=== PATIENT | male | born 1935 | race Caucasian/White ===

== ENCOUNTER → 2017-08-30 15:51 | Outpatient (CLI) | payer MEDICARE, SELFPAY ==
--- NOTE | 2017-08-30 | DI.RAD.S_ITS ---
PROCEDURE: XR HIP W PEL IF DONE RT 2V INDICATIONS: RIGHT HIP PAIN TECHNIQUE: AP pelvis with lateral view(s) of the right hip(s). COMPARISON: [facility], CR, HIPBILAT 3TO4V W PEL IF PERFD, 04/30/2015, 14:14. FINDINGS: Bones: No fractures or dislocations. Degenerative osteophytic change at the right hip has mildly progressed, and the hip joint osteoarthritis on the left is mild to moderate and on the right now is moderate. No trauma found. Pelvic ring appears intact. No suspicious bony lesions. Soft tissues: The visualized bowel gas pattern is normal. No suspicious soft tissue calcifications. IMPRESSION: Worsening degenerative joint osteoarthritis, now moderate on the right and no trauma or subluxation is present. This represents a mild degree of interval worsening from 2016. Dictated by: Moses Snyder M.D. on 08/30/2017 at 16:27 Approved by: Moses Snyder M.D. on 08/30/2017 at 16:28
== END ==
PROVIDERS: Visit Provider Physician Assistant
DX: M16.11 Unilateral primary osteoarthritis, right hip (principal); M25.551 Pain in right hip
CPT/HCPCS: 73502

== ENCOUNTER → 2017-08-31 19:11 | Outpatient (CLI) | payer MEDICARE, SELFPAY ==
--- NOTE | 2017-08-31 19:16 | DI.RAD.S_ITS ---
PROCEDURE: XR HIP RT 1V INDICATIONS: PAIN IN RIGHT HIP TECHNIQUE: Single frontal view of the hip was acquired. COMPARISON: None. FINDINGS: Bones: No fractures or dislocations. There is ill-defined increased density in the proximal right femoral metaphysis partially visualized. The visualized pelvic ring appears intact. Right hip degenerative change. Soft tissues: No suspicious soft tissue calcifications or masses. IMPRESSION: 1. Partially visualized increased density in the proximal right femoral metaphysis near the clinically reported soft tissue lump. Consider dedicated right femoral radiographs. 2. No right hip fractures. If there is concern for a radiographically occult fracture than a noncontrast MRI would be recommended for further evaluation. Dictated by: Castro Liu M.D. on 09/01/2017 at 12:10 Approved by: Castro Liu M.D. on 09/01/2017 at 12:12
== END ==
PROVIDERS: Visit Provider Physician Assistant
DX: M25.551 Pain in right hip (principal); Z53.9 Procedure and treatment not carried out, unspecified reason
CPT/HCPCS: 73501

== ENCOUNTER → 2017-09-01 14:31 | Outpatient (CLI) | payer MEDICARE, SELFPAY | PROVIDERS: Visit Provider Physician Assistant | DX: M25.551 Pain in right hip (principal); Z53.9 Procedure and treatment not carried out, unspecified reason | CPT/HCPCS: 73502 ==

== ENCOUNTER → 2017-10-31 12:04 | Outpatient (CLI) | payer MEDICARE, SELFPAY | PROVIDERS: PCP Physician Assistant; Visit Provider Internal Medicine | DX: L89.213 Pressure ulcer of right hip, stage 3 (principal); M62.84 Sarcopenia; L08.9 Local infection of the skin and subcutaneous tissue, unspecified | CPT/HCPCS: 11042; 87070; 87075; 87147; 87205 ==

== ENCOUNTER → 2017-11-07 09:49 | Outpatient (CLI) | payer MEDICARE, SELFPAY | PROVIDERS: PCP Physician Assistant; Visit Provider Internal Medicine | DX: L89.213 Pressure ulcer of right hip, stage 3 (principal) | CPT/HCPCS: 11042 ==

== ENCOUNTER → 2017-11-14 09:43 | Outpatient (CLI) | payer MEDICARE, SELFPAY ==
--- NOTE | 2017-11-14 | OV.WND_ITS ---
Progress Note Details Patient Name: Ar Hernandez Patient Number: [id number] PatientPatientDate: 11/14/2017 Clinician: Tesha Collazo Clinician Cosigner: Ana Maria Paul Physician / Transformer Maker: Shawn Perez SUBJECTIVE Chief Complaint This information was obtained from the patient Pressure ulcer on the right hip. Allergies amoxicillin (Severity: Moderate, Reaction: hives) HPI This information was obtained from the patient 11/14/17. Seen by Dr. Perez. The patient does not report pain or significant drainage associated with the right hip pressure ulcer since his last visit. 11/07/17. Seen by Dr. Perez. The patient does not report pain or significant drainage associated with the right hip pressure ulcer since his last visit and he's offloading the site as much as possible noting it's difficult while sleeping at night. 10/31/17. Seen by Dr. Perez. The patient presents with a right lateral hip pressure ulcer he feels has been present for many months and may have started after a fall onto the hip which lead to a large bruise. He does not report pain at the site nor drainage and he' s been applying topical mupiricin. He admits to being quite sedentary and uses a power scooter to help mobilize due to chronic lower ack pain and states he has an offloading cushion for the scooter. Past Medical History This information was obtained from the patient Patient has a medical history of: Hypertension Chronic low back pain Bilateral hip pain Complaints and Symptoms This information was obtained from the patient Patient complains of: General Notes: I have reviewed and concur with the Review of Systems and Past Family Social History documents completed by the clinician, I have reviewed and concur with the Wound Assessment document completed by the clinician Hematologic/Lymphatic: Bleeding Tendency Integumentary (Hair/Skin/Nails): Open Sore Musculoskeletal: Muscle Wasting, Muscle Weakness Prior Wound History: Erythema Patient denies complaints or symptoms related to: Cardiovascular (Central): Irregular heart beat Constitutional Symptoms (General Health): Chills, Fever Hematologic/Lymphatic: Bleeding / Clotting Disorders Neurological: Loss of Protective Sensation Prior Wound History: Drainage Psychiatric: Memory Loss Respiratory: Shortness of Breath Additional Information Does patient have a history of Cancer? Yes? Complete all questions.: No OBJECTIVE Constitutional BP elevated; Afebrile; Alert and in no distress. Well developed. Alert. Clean appearing.. Height/Length: 68 in (172.72 cm), Weight: 185.8 lbs (84.45 kgs), BMI: 28.2, Temperature: 98.5 ?F (36.94 ?C), Pulse: 61 bpm, Respiratory Rate: 16 breaths/min, Blood Pressure: 180/77 mmHg, Pulse Oximetry: 96 %. Respiratory: No respiratory distress. Even respirations and without use of accessory muscles.. Integumentary (Hair, Skin) Mild periwound erythema without warmth; adherent yellow drainage overlying. Refer to appropriate clinician wound documentation for this visit; right hip ulcer extends to subcut with base partially covered with pink granulation, remainder fibrin and slough. 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 Subsequent wound encounter measurements are 1.3cm length x 0.5cm width x 0.1cm depth, with an area of 0.65 sq cm and a volume of 0.065 cubic cm. No tunneling has been noted. No sinus tract has been noted. No undermining has been noted. There is a small amount of serosanguineous drainage noted which has no odor. The patient reports a wound pain of level 0/10. The wound margin is attached. Wound bed has Yes epithelialization, No eschar, Yes slough, Yes bright red, firm granulation. The periwound skin moisture is normal. The periwound skin color is normal. The periwound skin exhibited: Induration. The periwound skin did not exhibit: Brawny Induration, Edema, Excoriation, Callus, Crepitus, Fluctuance, Friable, Rash. The temperature of the periwound skin is WNL. Periwound skin does not exhibit signs or symptoms of infection. Local Pulse is N/A. Neurological: Cranial nerves grossly intact with symmetric function normal by informal observation.. ASSESSMENT Active Problems ICD-10 (Encounter Diagnosis) L89.213 - Pressure ulcer of right hip, stage 3 (Encounter Diagnosis) L08.9 - Local infection of the skin and subcutaneous tissue, unspecified PROCEDURES Wound #1 Wound #1 (Pressure Ulcer) is located on the right, lateral hip. A skin/ subcutaneous tissue level surgical debridement with a total area debrided of 0.52 sq cm was performed by Shawn Perez MD. Subcutaneous was removed along with devitalized tissue: exudate and slough. The following instrument(s) were used: curette. Pain control was achieved using 4% Lido. A time out was conducted prior to the start of the procedure. A moderate amount of bleeding was controlled with pressure. The procedure was tolerated well with a pain level of 0 throughout and a pain level of 0 following the procedure. Post Debridement Measurements: 1.3cm length x 0.4cm width x 0.2cm depth; with an area of 0.52 sq cm and a volume of 0.104 cubic cm; Additional Information Muscle fascia or bone removed and sent to pathology?: No PLAN Wound Orders: Wound #1 Right, Lateral Hip Anesthetic Topical Xylocaine to wound bed. - Lidocaine used in clinic only. Cleanser Cleanse Wound: - Normal saline and gauze, may use distilled water at home. May Shower. - Please cover with protective materials to avoid water getting in the wound. Dressings Pack wound: - THIN layer of hydrogel to wound base. Cover and secure with: - Covrsite island dressing. Change Dressing: - Every other day. Additional Orders: Off-Loading Keep weight off: - Use pillow for off loading. Turn every 2 hours. Avoid position directing pressure to Wound site. Limit side lying to 30 degree tilt. Limit HOB elevation to 30 degrees in bed. Follow-Up Appointments Return Appointment: - - One week. Other information: If you develop fever, chills, increased pain, drainage, redness or swelling please call our office. If after hours, respond to the ER. Should you experience any significant changes in your wound(s) or have any questions regarding your home care instructions please contact the wound center @ [phone]. If after hours, contact your primary care physician or go to the hospital emergency room. Scribing Attestation I attest, as the nurse, that I scribed these orders for the physician. Laboratory: Culture Wound - Will call with culture results if any antibiotics are required. I've reviewed the clinician's documentation and agree with the evaluation and plan as written. In addition, the patient's ulcer demonstrates evidence of non-viable devitalized tissue which will continue to benefit from sharp debridement to help promote granulation and expedite healing. Also, I've cultured the ulcer drainage and will begin treating with topical OTC antibiotic then consider adding and oral antibiotic pending the culture results. Electronic Signature(s) Signed By: Date: Shawn Perez MD 11/14/2017 13:54:04 Entered By: Shawn Perez on 11/14/2017 13:48:03
== END ==
PROVIDERS: PCP Physician Assistant; Visit Provider Internal Medicine
DX: L89.213 Pressure ulcer of right hip, stage 3 (principal)
CPT/HCPCS: 11042; 87070; 87075; 87205

== ENCOUNTER → 2017-11-22 14:18 | Outpatient (CLI) | payer MEDICARE, SELFPAY ==
--- NOTE | 2017-11-22 | OV.WND_ITS ---
Progress Note Details Patient Name: Ar Hernandez Patient Number: [id number] PatientPatientDate: 11/22/2017 Clinician: Jennifer Jim Clinician Cosigner: Ana Maria Paul Physician / Shellfish Processing Laborer: Shawn Perez SUBJECTIVE Chief Complaint This information was obtained from the patient Pressure ulcer on the right hip. Allergies amoxicillin (Severity: Moderate, Reaction: hives) HPI This information was obtained from the patient 11/22/17. Seen by Dr. Perez. The patient does not report pain or significant drainage associated with the right hip pressure ulcer since his last visit. 11/14/17. Seen by Dr. Perez. The patient does not report pain or significant drainage associated with the right hip pressure ulcer since his last visit. 11/07/17. Seen by Dr. Perez. The patient does not report pain or significant drainage associated with the right hip pressure ulcer since his last visit and he's offloading the site as much as possible noting it's difficult while sleeping at night. 10/31/17. Seen by Dr. Perez. The patient presents with a right lateral hip pressure ulcer he feels has been present for many months and may have started after a fall onto the hip which lead to a large bruise. He does not report pain at the site nor drainage and he' s been applying topical mupiricin. He admits to being quite sedentary and uses a power scooter to help mobilize due to chronic lower ack pain and states he has an offloading cushion for the scooter. Past Medical History This information was obtained from the patient Patient has a medical history of: Hypertension Chronic low back pain Bilateral hip pain Complaints and Symptoms This information was obtained from the patient Patient complains of: General Notes: I have reviewed and concur with the Review of Systems and Past Family Social History documents completed by the clinician, I have reviewed and concur with the Wound Assessment document completed by the clinician Hematologic/Lymphatic: Bleeding Tendency Integumentary (Hair/Skin/Nails): Open Sore Musculoskeletal: Muscle Wasting, Muscle Weakness Prior Wound History: Erythema Patient denies complaints or symptoms related to: Cardiovascular (Central): Irregular heart beat Constitutional Symptoms (General Health): Chills, Fever Hematologic/Lymphatic: Bleeding / Clotting Disorders Neurological: Loss of Protective Sensation Prior Wound History: Drainage Psychiatric: Memory Loss Respiratory: Shortness of Breath Additional Information Does patient have a history of Cancer? Yes? Complete all questions.: No OBJECTIVE Constitutional BP elevated; Afebrile; Alert and in no distress. Well developed. Alert. Clean appearing.. Height/Length: 68 in (172.72 cm), Weight: 190.3 lbs (86.5 kgs), BMI: 28.9, Temperature: 98.4 ?F (36.89 ?C), Pulse: 69 bpm, Respiratory Rate: 18 breaths/min, Blood Pressure: 176/74 mmHg, Pulse Oximetry: 95 %. Respiratory: No respiratory distress. Even respirations and without use of accessory muscles.. Integumentary (Hair, Skin) Refer to appropriate clinician wound documentation for this visit.. 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 Subsequent wound encounter measurements are 0.1cm length x 0.1cm width x 0.1cm depth, with an area of 0.01 sq cm and a volume of 0.001 cubic cm. No tunneling has been noted. No sinus tract has been noted. No undermining has been noted. There is a small amount of serosanguineous drainage noted which has no odor. The patient reports a wound pain of level 0/10. The wound margin is attached. Wound bed has Yes epithelialization, No eschar, No slough, No granulation. The periwound skin moisture is normal. The periwound skin color is normal. The periwound skin did not exhibit: Brawny Induration, Edema, Excoriation, Induration, Callus , Crepitus, Fluctuance, Friable, Rash. The temperature of the periwound skin is WNL. Periwound skin does not exhibit signs or symptoms of infection. Local Pulse is N/A. Neurological: Cranial nerves grossly intact with symmetric function normal by informal observation.. ASSESSMENT Active Problems ICD-10 (Encounter Diagnosis) L89.213 - Pressure ulcer of right hip, stage 3 PLAN Wound Orders: Wound #1 Right, Lateral Hip Anesthetic Topical Xylocaine to wound bed. - Lidocaine used in clinic only. Cleanser Cleanse Wound: - Normal saline and gauze, may use distilled water at home. May Shower. - Please cover with protective materials to avoid water getting in the wound. Dressings Pack wound: - THIN layer of hydrogel to wound base. Cover and secure with: - Covrsite island dressing. Change Dressing: - Every other day. Additional Orders: Off-Loading Keep weight off: - Use pillow for off loading. Turn every 2 hours. Avoid position directing pressure to Wound site. Limit side lying to 30 degree tilt. Limit HOB elevation to 30 degrees in bed. Follow-Up Appointments Other information: If you develop fever, chills, increased pain, drainage, redness or swelling please call our office. If after hours, respond to the ER. Should you experience any significant changes in your wound(s) or have any questions regarding your home care instructions please contact the wound center @ [phone]. If after hours, contact your primary care physician or go to the hospital emergency room. Discharge from Outpatient Services. Scribing Attestation I attest, as the nurse, that I scribed these orders for the physician. Electronic Signature(s) Signed By: Date: Shawn Perez MD 11/23/2017 06:50:35 Entered By: Shawn Perez on 11/22/2017 14:43:02
== END ==
PROVIDERS: PCP Physician Assistant; Visit Provider Internal Medicine
DX: L89.213 Pressure ulcer of right hip, stage 3 (principal)
CPT/HCPCS: 99211

== ENCOUNTER → 2019-02-09 15:19 | Outpatient (CLI) | payer MEDICARE, SELFPAY ==
--- NOTE | 2019-02-09 | DI.RAD.S_ITS ---
PROCEDURE: XR FOOT RT MIN 3V INDICATIONS: injury of right foot TECHNIQUE: 3 views of the foot were acquired. COMPARISON: None. FINDINGS: Bones: There is diffuse osteopenia. Osteoarthritic changes throughout right foot and ankle is seen. Subtle linear lucency traversing the second, third and possibly metatarsal bases are seen concerning for subtle nondisplaced fractures. Clinical correlation is recommended. Soft tissues: No tibiotalar joint effusion. Achilles tendon appears normal. IMPRESSION: Moderate to severe osteoarthritic changes throughout right foot. Diffuse osteopenia. Subtle radiolucency involving second and third metatarsal bases and possibly fourth metatarsal base concerning for nondisplaced fractures in these areas. Clinical correlation is recommended. Dictated by: Carlos Enrique Urban M.D. on 02/09/2019 at 17:16 Approved by: Carlos Enrique Urban M.D. on 02/09/2019 at 17:20
--- NOTE | 2019-02-09 | DI.RAD.S_ITS ---
PROCEDURE: XR ANKLE RT MIN 3V INDICATIONS: inuryj of right foot TECHNIQUE: 3 views of the ankle were acquired. COMPARISON: None. FINDINGS: Bones: No fractures or dislocations. Ankle mortise is normally aligned. Osteoarthritic changes throughout ankle joint and hindfoot joints are seen. No suspicious bony lesions. Soft tissues: Marked soft tissue swelling around ankle joint is seen. No tibiotalar joint effusion. Achilles tendon appears normal. IMPRESSION: No gross acute ankle fracture or dislocation. Osteoarthritic changes throughout ankle joint and hindfoot joints. Dictated by: Carlos Enrique Urban M.D. on 02/09/2019 at 17:20 Approved by: Carlos Enrique Urban M.D. on 02/09/2019 at 17:21
== END ==
PROVIDERS: PCP Physician Assistant; Visit Provider Internal Medicine
DX: S99.921A Unspecified injury of right foot, initial encounter (principal); X58.XXXA Exposure to other specified factors, initial encounter; M85.871 Other specified disorders of bone density and structure, right ankle and foot
CPT/HCPCS: 73610; 73630

== ENCOUNTER → 2019-02-26 11:46 | Outpatient (CLI) | payer MEDICARE, SELFPAY ==
--- NOTE | 2019-02-26 | DI.US.S_ITS ---
PROCEDURE: US PERIPH VENOUS LOW EXTREM RT INDICATIONS: EDEMA X 6 YEARS TECHNIQUE: Real-time imaging, as well as color and pulse Doppler interrogation, were performed of the lower extremity deep veins from the inguinal ligament to the popliteal fossa. COMPARISON: None. FINDINGS: The common femoral, femoral and popliteal veins are normally compressible, and free of intraluminal thrombus. Color and pulse Doppler demonstrate normal phasic intraluminal flow. There is normal augmentation response to distal compression maneuver. IMPRESSION: No deep venous thrombosis identified within the right lower extremity. Dictated by: Hood Valero [facility] Interpreted: Moses Snyder MD on 02/26/2019 at 13:47 Approved by: Moses Snyder M.D. on 02/27/2019 at 9:11
== END ==
PROVIDERS: PCP Internal Medicine; Visit Provider Internal Medicine
DX: R60.0 Localized edema (principal); M79.89 Other specified soft tissue disorders
CPT/HCPCS: 93971

== ENCOUNTER → 2023-12-20 10:40 | Outpatient (CLI) | payer MEDICARE, SELFPAY ==
--- NOTE | 2023-12-20 10:45 | DI.RAD.S_ITS ---
PROCEDURE: XR SHOULDER LT MIN 2V INDICATIONS: SHOULDER PAIN TECHNIQUE: < 3 views of the shoulder were acquired. COMPARISON: None. FINDINGS: Bones: There are no osseous abnormalities. Acromioclavicular and glenohumeral joints: Mild acromioclavicular and severe glenohumeral degeneration noted Soft tissues: Calcifications seen in the distal rotator cuff. IMPRESSION: Degeneration. 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 Dictated by: Vik Murray M.D. on 12/21/2023 at 10:18 Approved by: Vik Murray M.D. on 12/21/2023 at 10:19
== END ==
LOC: RAD 10:44
PROVIDERS: PCP Nurse Practitioner Family; Referring Provider Nurse Practitioner Family; Visit Provider Nurse Practitioner Family
DX: M19.012 Primary osteoarthritis, left shoulder (principal); M25.512 Pain in left shoulder; G89.29 Other chronic pain
CPT/HCPCS: 73030

== ENCOUNTER → 2024-01-31 08:37 | Outpatient (CLI) | payer OTHER, SELFPAY ==
--- NOTE | 2024-01-31 08:41 | DI.CT.S_ITS ---
PROCEDURE: CT CHEST WO CON INDICATIONS: SOFT TISSUE MASS TECHNIQUE: Noncontrast 5 mm thick sections acquired from the pulmonary apices to the posterior costophrenic angles. 1 mm lung window, 5 mm thick coronal and sagittal and 7 mm axial MIP reformats were then acquired. For radiation dose reduction, the following was used: automated exposure control, adjustment of mA and/or kV according to patient size. COMPARISON: None. FINDINGS: Image quality: Diagnostic. Lower Neck: No enlarged lymph nodes. Thyroid: No thyroid nodules which require sonographic follow up, per consensus guidelines. Axillae: No enlarged lymph nodes. Chest Wall: In this patient with this given history, scrutiny is given to at the marked area of clinical concern. Posteriorly on the right, there is a soft tissue lesion seen measuring 3.7 x 2.4 cm in greatest axial dimension, with a craniocaudal extent of 4.7 cm. No involvement of the underlying ribs can be seen. Bones: Age-appropriate bony degenerative changes are seen. Accentuated thoracic kyphosis is seen. Lungs and Pleura: No pneumothorax or pleural effusions. No consolidation or suspicious nodules. However, several tiny subpleural nodules can be seen that measure up to 4 mm, which are likely related to subpleural lymph nodes. Heart: Heart size is normal. No pericardial effusion. Moderate to prominent coronary artery calcification can be seen. Thoracic Vessels: The aorta and pulmonary arteries demonstrate normal size. Mediastinum and Glenda: No enlarged lymph nodes. Esophagus: No wall thickening. There is a small hiatal hernia. Upper Abdomen: Visualized upper abdomen solid organs and bowel loops appear normal. IMPRESSION: Superficial soft tissue chest wall mass seen at the marked area of clinical concern, measuring up to 4.7 cm. - If clinically appropriate, please consider ultrasound-guided percutaneous biopsy. Additional findings: Moderate to prominent coronary artery calcification Small hiatal hernia Dictated by: Arturo Dunn M.D. on 01/31/2024 at 15:04 Approved by: Arturo Dunn M.D. on 01/31/2024 at 15:07
== END ==
LOC: CT 08:40
PROVIDERS: PCP Nurse Practitioner Family; Referring Provider Nurse Practitioner Family; Visit Provider Nurse Practitioner Family
DX: R22.2 Localized swelling, mass and lump, trunk (principal); M79.89 Other specified soft tissue disorders; I25.10 Atherosclerotic heart disease of native coronary artery without angina pectoris; K44.9 Diaphragmatic hernia without obstruction or gangrene; M40.294 Other kyphosis, thoracic region; R22.0 Localized swelling, mass and lump, head; L98.9 Disorder of the skin and subcutaneous tissue, unspecified
CPT/HCPCS: 71250

== ENCOUNTER → 2024-02-28 09:05 | Outpatient (CLI) | payer OTHER, SELFPAY ==
--- NOTE | 2024-02-28 09:06 | DI.ECHO.S_ITS ---
[place] [facility]---------+ [facility] : : [address] : : [place] : : [id number] : : Phone: [phone] Echocardiogram Report + + :Name: JOSE LOPEZ Study Date: 02/28/2024 Height: 67 in : :[facility] ReadingLocation: Weight: 182 lb : : Gender: Male BSA: 1.9 m2 : :: 1935 Age: 88 yrs BP: 159/78 mmHg: :Reason For Study: BILATERAL LEG EDEMA : :Ordering Physician: MEAGAN NOBLES : :E MEDIA PROMOTER Performed By: Talya Youngblood : :Referring: MEAGAN NOBLES MEDIA PROMOTER : + + Interpretation Summary 1. Normal LV contractility with EF > 60%. No WMA. No LVH. Unable to comment on diastolic function. 2. Normal RV contractility. 3. Borderline RVE. 4. Mild with mean gradient 8 mmHg and dimensionless index 0.66. Mild to moderate AI 5. MR/TR noted on spectral display only. 6. No obvious intracardiac shunts. 7. No obvious intracardiac masses/thrombi. 8. No hemodynamically significant pericardial effusion. 9. Low right sided filling pressures. Conclusion Normal biventricular systolic function with mild to moderate valvular abnormalities. Procedure: A two-dimensional transthoracic echocardiogram with color flow and Doppler was performed. The study quality was technically adequate. There is no prior echocardiogram noted for this patient. The patient was in sinus bradycardia with heart rates between 52-64 bpm during the exam. The patient had occasional PVCs during the exam. Left Ventricle: The left ventricle is normal in size and wall thickness. The ejection fraction is estimated to be 60-65%. Right Ventricle: The right ventricle is mildly dilated. The right ventricular systolic function is normal. Atria: The left atrial size is normal. Right atrial size is normal. There is no Doppler evidence for an interatrial shunt. Mitral Valve: The mitral valve leaflets appear mildly thickened, but open well. There is mild mitral annular calcification. There is mild mitral regurgitation. Aortic Valve: The aortic valve is trileaflet. The peak aortic velocity is 2.07 m/sec. The aortic valve mean gradient is 8 mmHg. The calculated aortic valve area is 1.8 cm2. There is mild to moderate aortic regurgitation. Tricuspid Valve: The tricuspid valve leaflets are thin and pliable. There is trace tricuspid regurgitation. Pulmonic Valve: The pulmonic valve is not well visualized. There is no pulmonic valvular regurgitation. Great Vessels: The aortic root is normal size. The dimensions of the ascending aorta are normal. The IVC is of normal diameter and collapses greater than 50% with a sniff. This suggests a low right atrial pressure of 3 mm Hg. Pericardium/ Pleura There is no pericardial effusion. There is no pleural effusion. MMode/2D Measurements & Calculations LVIDd: 4.8 cm LVOT diam: 2.0 cm LVIDs: 3.0 cm Ao root diam: 3.8 cm FS: 37.2 % asc Aorta Diam: 3.5 cm EPSS: 0.58 cm Ao Arch Diam (Prox Trans): 3.0 cm IVSd: 0.98 cm LVPWd: 0.84 cm LV morrow. diameter/BSA (cm/m^2): 2.5 LV sys. diameter/BSA (cm/m^2): 1.5 LA A2 area: 20.7 cm2 RA long axis: 5.2 cm LA A4 area: 18.0 cm2 RA area: 16.1 cm2 LA length (vol): 5.6 cm RA vol: 42.2 ml LA vol: 56.9 ml RA : 21.7 ml/m2 LA vol index: 29.3 ml/m2 IVC diam: 1.5 cm RVD1 (basal): 4.1 cm RVD2 (mid): 3.0 cm TAPSE: 2.0 cm Doppler Measurements & Calculations Ao V2 max: 207.1 cm/sec LVOT Max Jeff: 121.0 cm/sec Ao V2 mean: 124.2 cm/sec LV V1 max P.9 mmHg Ao max P.3 mmHg LV V1 VTI: 28.9 cm Ao mean P.9 mmHg MOE(I,D): 2.0 cm2 Ao V2 VTI: 44.1 cm MOE(V,D): 1.8 cm2 sev ratio: 0.66 MOE indexed to BSA (cm^2/m^2): 1.0 AI P1/2t: 663.7 msec AI dec slope: 177.5 cm/sec2 MV E max jeff: 82.0 cm/sec TR max jeff: 267.0 cm/sec MV A max jeff: 80.3 cm/sec TR max P.5 mmHg MV E/A: 1.0 PA V2 max: 95.4 cm/sec Med Peak E' Jeff: 8.8 cm/sec PA V2 mean: 64.6 cm/sec E/E' med: 9.3 PA mean P.9 mmHg MV dec time: 0.25 sec PA pr(Accel): 36.2 mmHg SV(LVOT): 89.3 ml Reading Physician:
== END ==
PROVIDERS: PCP Nurse Practitioner Family; Referring Provider Nurse Practitioner Family; Visit Provider Nurse Practitioner Family
DX: I08.0 Rheumatic disorders of both mitral and aortic valves (principal); R60.0 Localized edema
CPT/HCPCS: 93306

== ENCOUNTER → 2024-03-26 11:40 | Outpatient (CLI) | payer OTHER, SELFPAY ==
--- NOTE | 2024-03-26 | PATH_ITS ---
[facility] Accession Number: [id number] No. of containers..01 Tissue . 01 Material submitted: . flank - RIGHT FLANK MASS . 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 Negative for malignancy. MRV 03/28/2024 1705 Local . 01 Electronically signed: . Lidia Del Rio MD, Pathologist NPI- [id number] . 01 Gross description: . RIGHT FLANK MASS: Received in formalin are 3 fragment(s) of antonio, soft tissue measuring 0.8 x 0.1 x 0.1 cm to 1.6 x 0.1 x 0.1 cm submitted entirely in 1 cassette(s) /BRODIE 03/27/2024 0152 Local . 01 Microscopic: . Microscopic examination reveals fibrocollagenous tissue with interspersed uniform spindle cells with eosinophilic cytoplasm and inconspicuous nucleolus. There are occasional ganglion-like epithelioid cells with amphophilic cytoplasm and eccentric nucleus with prominent nucleolus. Focal areas of fibrinoid necrosis surrounded by granulation tissue, and proliferation of plump myofibroblastic cells also present. To better evaluate the lesional cells, a panel of immunostains is performed with the following results: . Smooth muscle actin: Cells of interest positive. Desmin: Cells of interest positive. S100: Cells of interest negative. Beta-catenin: Nonspecific cytoplasmic staining. CHRISTIANO and OWEN: Cells of interest negative. CD34: Cells of interest negative. Proliferation marker Ki-67: Low, marking a subset of cells of interest. . The immunohistochemical results support myofibroblastic differentiation of the lesional cells, and along with the morphology, support the diagnosis. . Correlation with imaging studies is recommended to ensure that the mass has been adequately sampled. . As part of ongoing senior data quality analyst, this case is also reviewed by Dr. Brissa Pickens, who agrees with the interpretation. . * This test was developed and the performance characteristics were validated by [facility]. It has not been cleared or approved by the [place]. Food and Drug Administration. . 01 Pathologist provided ICD-10: M79.89 . 01 CPT . 632744, B39295, A17626 Specimen Comment: A courtesy copy of this report has been sent to [facility] Pathology Performed at: [address] [id number] MD Sujit Coleman MD Phone: [phone]
--- NOTE | 2024-03-26 11:42 | DI.US.S_ITS ---
PROCEDURE: US BIOPSY MUSCLE SUPERFICIAL Ultrasound-guided biopsy without sedation. INDICATIONS: RT POSTERIOR FLANK SOFT TISSUE MASS TECHNIQUE: The indications, alternatives, benefits, risks, and complications of the procedure were explained to the patient. Written informed consent was obtained and placed in the chart. Continuous EKG and hemodynamic monitoring was started by trained personnel. Real-time sonography was utilized to choose the site for percutaneous right chest wall biopsy. The skin was prepped and draped in the usual sterile fashion. 1% lidocaine was infiltrated down to the site of interest. A coaxial needle was then advanced into the site of interest under direct sonographic visualization. A biopsy apparatus was then utilized, and core biopsies were obtained. The needle was then withdrawn; a bandage was applied to the biopsy site. COMPARISON: None. FINDINGS: Biopsy site(s): Right chest wall Needle: Lightwaves biopsy needle set. Number of passes: 3 Medications: 1% lidocaine for local anaesthesia. Complications: None. IMPRESSION: Successful ultrasound-guided right chest wall biopsy, with pathology results pending. Dictated by: Damon Issa M.D. on 03/26/2024 at 16:14 Approved by: Damon Issa M.D. on 03/26/2024 at 16:15
== END ==
PROVIDERS: PCP Nurse Practitioner Family; Referring Provider Radiology Diagnostic Radiology; Visit Provider Radiology Diagnostic Radiology
DX: M79.89 Other specified soft tissue disorders (principal)
CPT/HCPCS: 20200; 76942